=== PATIENT | female | born 1935 | race Hispanic/Latino ===

== ENCOUNTER 2018-07-03 09:52 | Day surgery (SDC) | payer OTHER, MEDICARE ==
[2018-07-03] VITALS (14 sets, daily range): BP systolic 148–192; BP diastolic 58–91
[~2018-07-03] VITALS: Ht 157.5 cm; Wt 81.6 kg
[~2018-07-03 09:52] MED LIST: SODIUM CHLORIDE 0.9% 1000ML 1,000 ML IV ONE
[2018-07-03] MEDS ORDERED: IOHEXOL-350 50ML VIAL IV ONE (11:19)
[2018-07-03] MEDS ORDERED: PROPOFOL 10 MG/ML 20ML VIAL IV ONE (11:32)
[2018-07-03] MEDS ORDERED: SUCCINYLCHOLINE CHLORIDE 20 MG/ML 10 ML VIAL ONE (11:32)
[2018-07-03] MEDS ORDERED: FENTANYL CITRATE PF 50 MCG/1 ML 2ML VIAL ONE (11:32)
[2018-07-03] MEDS ORDERED: PANT40TA25 PO (11:38)
[2018-07-03] MEDS ORDERED: DONE5TAB33 PO (11:38)
[2018-07-03] MEDS ORDERED: LOSA25TA16 PO (11:38)
[2018-07-03] MEDS ORDERED: LEVO88TA7 PO (11:38)
[2018-07-03] MEDS ORDERED: FLUT1DIS4 IH (11:38)
[2018-07-03] MEDS ORDERED: GLYCOPYRROLATE 0.2 MG/ML 5 ML VIAL ONE (11:50)
[2018-07-03] MEDS ORDERED: ZOSYN 3.375GM+NS 50ML 50 ML IV ONE (12:44)
[2018-07-03] MEDS ORDERED: LIDOCAINE HCL 2% VISCOUS 30 ML, MAG HYDROX/AL HYDROX/SIMETH 30 ML, DICYCLOMINE HCL 20 MG PO SCH ×3 (14:00)
[2018-07-03] MEDS ORDERED: HYDROMORPHONE 1 MG/1 ML AMP SQ SCH (14:00)
[2018-07-03] MEDS ORDERED: PHARMACY COMMUNICATION MISC SCH (14:00)
[2018-07-03] MEDS ORDERED: CEFAZOLIN SODIUM 1 GM VIAL IVP SCH (14:00)
[2018-07-03] MEDS ORDERED: COMPOUND PO MISCELLANEOUS 1 EACH MISC MISC PRN (14:00)
== END 2018-07-03 15:28 | disposition home or self-care (01) ==
LOC: ENDO 09:52 → DAH 09:52 → ENDO 15:28
PROVIDERS: ATTEND Internal Medicine Gastroenterology
DX: K80.51 Calculus of bile duct without cholangitis or cholecystitis with obstruction (principal); K29.70 Gastritis, unspecified, without bleeding; I10 Essential (primary) hypertension; E78.4 Other hyperlipidemia; K59.01 Slow transit constipation; K83.8 Other specified diseases of biliary tract; E78.5 Hyperlipidemia, unspecified; E03.9 Hypothyroidism, unspecified; M81.0 Age-related osteoporosis without current pathological fracture; M19.90 Unspecified osteoarthritis, unspecified site; Z96.89 Presence of other specified functional implants; Z79.899 Other long term (current) drug therapy; Z90.49 Acquired absence of other specified parts of digestive tract; Z90.710 Acquired absence of both cervix and uterus; Z90.89 Acquired absence of other organs; Z96.659 Presence of unspecified artificial knee joint; Z98.890 Other specified postprocedural states
CPT/HCPCS: 43265; 43274; 74330; 93005; A4606; C1769; C1773; C2625; J0330; J0690; J1170; J2543; J2704; J7030; Q9967; 43264; G9654; J3010; J3490

== ENCOUNTER 2019-03-19 09:48 | Day surgery (SDC) | payer OTHER, MEDICARE ==
[~2019-03-19] VITALS: Ht 154.9 cm; Wt 81.6 kg
[2019-03-19] VITALS (11 sets, daily range): BP systolic 153–168; BP diastolic 70–92
[~2019-03-19 09:48] MED LIST changes: +ACET-66 PO; +CHOL500050 PO; +DONE5TAB33 PO; +FLUT1DIS4 IH; +LEVO88TA7 PO; +LOSA25TA41 PO; +PANT40TA25 PO
[2019-03-19] MEDS ORDERED: INDOMETHACIN 50 MG SUPP.RECT RC ONE (12:45)
[2019-03-19] MEDS ORDERED: PROPOFOL 10 MG/ML 20ML VIAL IV ONE ×2 (12:51)
[2019-03-19] MEDS ORDERED: SUCCINYLCHOLINE CHLORIDE 20 MG/ML 10 ML VIAL ONE (12:52)
[2019-03-19] MEDS ORDERED: IOHEXOL-350 50ML VIAL IV ONE (12:52)
[2019-03-19] MEDS ORDERED: ICOS1CAP PO (13:04)
[2019-03-19] MEDS ORDERED: FLUO20DR4 OT (13:04)
[2019-03-19] MEDS ORDERED: FLUT16H NASAL (13:04)
[2019-03-19] MEDS ORDERED: SUCR1TAB2 PO (13:04)
[2019-03-19] MEDS ORDERED: DICY20TA11 PO (13:04)
[2019-03-19] MEDS ORDERED: EPHEDRINE SULFATE 50 MG/ML AMPULE ONE (13:19)
--- NOTE | 2019-03-19 16:07 | NUR ---
Update Patient taken to the restroom twice. Took patient to her car. Upon return to PACU her vitals were erased by GEE Davalos thinking I had already documented them. From 1445 to 1545, patient was in Normal sinus rhythm, systolic blood pressures ran between 140s-160s, saturation on room air 98%, respirations ran from 15-18 bpm. Addendum: 03/19/19 at 1612 by BIPIN STINSON RN RN Amended: Links added.
== END 2019-03-19 15:56 | disposition home or self-care (01) ==
LOC: ENDO 09:48 → DAH 09:48 → ENDO 15:56
PROVIDERS: ATTEND Internal Medicine
DX: K80.50 Calculus of bile duct without cholangitis or cholecystitis without obstruction (principal); I10 Essential (primary) hypertension; E78.5 Hyperlipidemia, unspecified; E03.9 Hypothyroidism, unspecified; M81.0 Age-related osteoporosis without current pathological fracture; M19.90 Unspecified osteoarthritis, unspecified site; Z90.710 Acquired absence of both cervix and uterus; Z90.49 Acquired absence of other specified parts of digestive tract; Z79.899 Other long term (current) drug therapy; K29.50 Unspecified chronic gastritis without bleeding; K59.01 Slow transit constipation
CPT/HCPCS: 43262; 43264; 74330; A4606; C1769; J0330; J2704 ×2; J3490; J7030; Q9967; 43277